=== PATIENT | male | born 1955 ===

== ENCOUNTER 2020-11-24 10:30 | Inpatient (IN) | payer BC ==
[~2020-11-24] VITALS: Ht 172.7 cm; Wt 99.8 kg
[2020-11-24] MEDS ORDERED: FORTAMET1000 MG (10:41)
[2020-11-24] MEDS ORDERED: ZESTRIL10 M1 (10:42)
[2020-11-24] MEDS ORDERED: GLIMEPIRIDE2 MG (10:42)
[2020-11-24] MEDS ORDERED: ADVAIR 100-501 EACH (10:43)
== END 2020-11-28 12:01 | disposition home or self-care (01) | DRG 694 ==
LOC: ER 10:30 → SEC-K 21:13 → SURH 11-25 20:13
PROVIDERS: ADMIT Specialist; ATTEND Specialist
PROC: BW21ZZZ Computerized Tomography (CT Scan) of Abdomen and Pelvis (ICD-10-PCS; principal; 2020-11-24)
DX: N13.2 Hydronephrosis with renal and ureteral calculous obstruction (principal); J44.9 Chronic obstructive pulmonary disease, unspecified; I10 Essential (primary) hypertension; N17.8 Other acute kidney failure; E11.21 Type 2 diabetes mellitus with diabetic nephropathy; Z20.822 Contact with and (suspected) exposure to COVID-19; Z68.39 Body mass index [BMI] 39.0-39.9, adult; E66.8 Other obesity; Z79.4 Long term (current) use of insulin; Z87.442 Personal history of urinary calculi